=== PATIENT | male | born 1950 | race Caucasian/White ===

== ENCOUNTER 2019-01-23 04:20 | Inpatient (IN) | payer MEDICARE ==
[2019-01-22 11:59] LABS: MICROSCOPIC NOT IND
[2019-01-22 14:48] LABS: BASOPHILS # (AUTO) 0.09 x10^3/uL (0-0.1); BASOPHILS % (AUTO) 1 % (0-1); EOSINOPHILS # (AUTO) 0.76 x10^3/uL (0-0.4); EOSINOPHILS % (AUTO) 8 % (1-7); LYMPHOCYTES # (AUTO) 1.98 x10^3/uL (1-3.4); LYMPHOCYTES % (AUTO) 22 % (22-44); MD NO; MEAN CORPUSCULAR HEMOGLOBIN 28.6 pg (27.5-34.5); MEAN CORPUSCULAR HGB CONC 32.3 g/dL (33.2-36.2); MEAN CORPUSCULAR VOLUME 88.5 fL (81-97); MEAN PLATELET VOLUME 7.6 fL (7.4-10.4); MONOCYTES # (AUTO) 0.64 x10^3/uL (0.2-0.8); MONOCYTES % (AUTO) 7 % (2-9); NEUTROPHILS # (AUTO) 5.68 x10^3/uL (1.8-6.8); NEUTROPHILS % (AUTO) 62 % (42-75); PLATELET COUNT 186 x10^3/uL (130-400); RED BLOOD COUNT 4.34 x10^6/uL (4.38-5.82); RED CELL DISTRIBUTION WIDTH 14.5 % (9.4-14.8)
[2019-01-22 14:58] LABS: INTERNATIONAL NORMALIZED RATIO 1.02 (0.93-1.1); PROTHROMBIN TIME 10.7 Seconds (9.6-11.5)
[2019-01-22 15:00] LABS: ALBUMIN 3.9 g/dL (3.4-5.0); ANION GAP 6 mmol/L (5-15); CHLORIDE 107 mmol/L (98-107)
[2019-01-22 15:04] LABS: ALANINE AMINOTRANSFERASE 27 U/L (12-78); ALKALINE PHOSPHATASE 76 U/L (45-117); BILIRUBIN,TOTAL 0.4 mg/dL (0.2-1.0); TOTAL PROTEIN 7.2 g/dL (6.4-8.2)
[~2019-01-23] VITALS: Ht 188 cm; Wt 86.6 kg
[~2019-01-23 04:20] MED LIST: ALBU18HF INH; ALOG25TA2 PO; ASPI-496 PO; ATEN25TA PO; ATOR40TA78 PO; FINA5TAB4 PO; FLUT9.9S INH; INSU100V8 SQ; MAGN400T7 PO; METF500T17 PO; TAMS-11 PO; TRIA15CR2 TD
[2019-01-23 04:34] VITALS: BP_SYST 118; BP_SYST 124; BP_DIAS 73; BP_DIAS 76
[2019-01-23] MEDS ORDERED: METOPROLOL TARTRATE 25 MG TABLET PO ONE (05:00)
[2019-01-23] MEDS ORDERED: CHLORHEXIDINE 15 ML UDC MM SCH (05:30)
[2019-01-23] MEDS ORDERED: INSULIN LISPRO 100 UNITS/ML, PEN SQ-INSULIN SCH (05:30)
[2019-01-23] MEDS ORDERED: PAPAVERINE 30 MG/ML, 2ML ONE (06:14)
[2019-01-23] MEDS ORDERED: HEPARIN 1,000 UNITS/ML, 10ML ONE (06:14)
[2019-01-23] MEDS ORDERED: MIDAZOLAM 10MG/2 ML ONE (07:12)
[2019-01-23] MEDS ORDERED: FENTANYL PF 250 MCG/5ML ONE ×4 (07:12)
[2019-01-23] MEDS ORDERED: CALCIUM CHLORIDE 10%, 10ML SYR ONE (07:13)
[2019-01-23] MEDS ORDERED: ROCURONIUM 10MG/ML,5ML ONE ×2 (07:13)
[2019-01-23] MEDS ORDERED: AMINOCAPROIC ACID 250 MG/ML, 20ML ONE ×3 (07:13→12:05)
[2019-01-23] MEDS ORDERED: PROPOFOL 10 MG/ML, 20ML ONE (07:13)
[2019-01-23] MEDS ORDERED: PHENYLEPHRINE 10 MG/ML ONE (07:13)
[2019-01-23] MEDS ORDERED: REGULAR INSULIN 62.5 UNITS in SODIUM CHLORIDE 0.9% 249.375 ML IV PRN ×2 (07:30→12:27)
[2019-01-23] MEDS ORDERED: POTASSIUM CHLORIDE 80 MEQ, SODIUM BICARBONATE 8.4% 10 MEQ, MAGNESIUM SULFATE 0.5 GM, LI... IV PRN (07:30)
[2019-01-23] MEDS ORDERED: CEFUROXIME 1.5 GM in SODIUM CHLORIDE 0.9% 50 ML IVPB PRN (07:30)
[2019-01-23] MEDS ORDERED: DEXMEDETOMIDINE 200 MCG in SODIUM CHLORIDE 0.9% 48 ML IV SCH (07:30)
[2019-01-23] MEDS ORDERED: EPINEPHRINE 2 MG in SODIUM CHLORIDE 0.9% 248 ML IV SCH (07:30)
[2019-01-23] MEDS ORDERED: ALBUMIN HUMAN 5% 500 ML IV PRN (07:30)
[2019-01-23] MEDS ORDERED: PHENYLEPHRINE 10 MG in SODIUM CHLORIDE 0.9% 249 ML IV PRN ×2 (07:30→12:27)
[2019-01-23] MEDS ORDERED: MANNITOL PMX 20% 500 ML IVPB PRN (07:30)
[2019-01-23] MEDS ORDERED: VANCOMYCIN 1,300 MG in SODIUM CHLORIDE 0.9% 250 ML IV PRN (07:30)
[2019-01-23] MEDS ORDERED: HEPARIN 1,000 UNITS/ML, 10ML IV ONE (08:40)
[2019-01-23] MEDS ORDERED: PAPAVERINE 30 MG/ML, 2ML IV ONE (08:41)
[2019-01-23] MEDS: DOCUSATE 100 MG CAPSULE PO SCH ×2 (09:00→20:31)
[2019-01-23] MEDS ORDERED: MUPIROCIN OINT 2%, 22GM TP SCH (09:00)
[2019-01-23] MEDS: SODIUM CHLORIDE FLUSH 10ML SYR IVF SCH ×3 (09:00→20:30)
[2019-01-23] MEDS ORDERED: PROTAMINE SULFATE 10 MG/ML, 25ML ONE ×2 (09:44)
[2019-01-23] MEDS ORDERED: THROMBIN 5,000 UNIT VIAL TP ONE ×3 (11:28→11:31)
[2019-01-23] MEDS ORDERED: DESMOPRESSIN 24 MCG in SODIUM CHLORIDE 0.9% 50 ML IVPB ONE (12:00)
[2019-01-23] MEDS ORDERED: VASOPRESSIN 50 UNIT in SODIUM CHLORIDE 0.9% 247.5 ML IV PRN (12:27)
[2019-01-23] MEDS ORDERED: SODIUM CHLORIDE 0.9% 1,000 ML IV PRN (12:27)
[2019-01-23] MEDS ORDERED: DOBUTAMINE 250 MG in SODIUM CHLORIDE 0.9% 230 ML IV PRN (12:27)
[2019-01-23] MEDS ORDERED: NITROGLYCERIN/D5W PMX 250 ML IV PRN (12:27)
[2019-01-23] MEDS ORDERED: DEXMEDETOMIDINE 200 MCG in SODIUM CHLORIDE 0.9% 48 ML IV PRN (12:27)
[2019-01-23] MEDS ORDERED: GLUCAGON 1 MG IM PRN (12:30)
[2019-01-23] MEDS: KSCALE TO 4.5 IV SCH ×2 (12:30→18:30)
[2019-01-23] MEDS ORDERED: EPINEPHRINE 2 MG in SODIUM CHLORIDE 0.9% 248 ML IV PRN (12:30)
[2019-01-23] MEDS ORDERED: BISACODYL 10 MG SUPP PR PRN (12:30)
[2019-01-23] MEDS ORDERED: ACETAMINOPHEN 650 MG SUPP PR PRN (12:30)
[2019-01-23] MEDS ORDERED: INSULIN REGULAR 100 UNITS/ML, 3ML VIAL IVPush PRN (12:30)
[2019-01-23] MEDS ORDERED: ACETAMINOPHEN 325 MG TABLET PO PRN (12:30)
[2019-01-23] MEDS ORDERED: SODIUM BICARB 8.4%, 50ML SYRINGE IV PRN (12:30)
[2019-01-23] MEDS ORDERED: MIDAZOLAM 1 MG/ML, 5ML IVPush PRN (12:30)
[2019-01-23] MEDS ORDERED: morphine SULFATE 10 MG/ML, 1ML IVPush PRN (12:30)
[2019-01-23] MEDS ORDERED: PROCHLORPERAZINE 5 MG/ML, 2ML IVPush PRN (12:30)
[2019-01-23] MEDS ORDERED: ONDANSETRON 2MG/ML, 2ML IVPush PRN (12:30)
[2019-01-23] MEDS ORDERED: DEXTROSE 50%, 50ML SYRINGE IVPush PRN (12:30)
[2019-01-23] MEDS ORDERED: DEXTROSE 4 GM TAB.CHEW PO PRN (12:30)
[2019-01-23] MEDS ORDERED: LACTATED RINGERS 1,000 ML IV PRN (12:30)
[2019-01-23 13:00] VITALS: BP 111/53
[2019-01-23] MEDS ORDERED: LIDOCAINE 2% 100MG/5ML SYRINGE ONE (13:00)
[2019-01-23] MEDS ORDERED: SODIUM BICARBONATE 1 MEQ/ML, 50ML VIAL ONE ×2 (13:00→13:38)
[2019-01-23] MEDS ORDERED: methylPREDNISolone SOD SUCC 125 MG/2 ML ONE (13:00)
[2019-01-23] MEDS ORDERED: HEPARIN 1,000 UNITS/ML, 30ML ONE (13:01)
[2019-01-23] MEDS ORDERED: ALBUMIN HUMAN 25% 50 ML ONE (13:01)
[2019-01-23 13:11] LABS: GLUCOSE BY BLOOD GAS ANALYZER 189 mg/dL (70-110); HEMOGLOBIN BY BLOOD GAS ANALYZ 8.5 g/dL (14.0-18.0); POTASSIUM BY BLOOD GAS ANALYZR 3.8 mmol/L (3.6-5.5)
[2019-01-23 13:14] LABS: FIO2 80 %
[2019-01-23] MEDS: MAGNESIUM SULFATE 1 GM in SODIUM CHLORIDE 0.9% 50 ML IVPB SCH (13:49)
[2019-01-23] MEDS ORDERED: POTASSIUM CHLORIDE PMX 100 ML IV ONE (14:00)
[2019-01-23 14:17] VITALS: BP 114/51
[2019-01-23] MEDS: INSULIN LISPRO 100 UNITS/ML, PEN SQ-INSULIN SCH ×2 (16:00→21:00)
[2019-01-23] MEDS: OXYcodone IR 5MG TABLET PO PRN ×2 (16:17→20:31)
[2019-01-23] MEDS ORDERED: ALBUMIN HUMAN 25% 100 ML ONE (16:25)
[2019-01-23] MEDS ORDERED: ALBUTEROL SULFATE 2.5 MG/3 ML NPPB PRN (16:30)
[2019-01-23] MEDS ORDERED: ALBUMIN HUMAN 25% 50 ML IV ONE (17:00)
[2019-01-23] MEDS ORDERED: ALBUMIN HUMAN 25% 100 ML IV ONE (17:30)
[2019-01-23] MEDS: HYDROcodone/APAP 5/325 TABLET PO PRN (17:33)
[2019-01-23] MEDS: VANCOMYCIN 1,300 MG in SODIUM CHLORIDE 0.9% 250 ML IVPB SCH (18:26)
[2019-01-23] MEDS: CEFUROXIME 1.5 GM in SODIUM CHLORIDE 0.9% 50 ML IVPB SCH (18:26)
[2019-01-23] MEDS: MUPIROCIN OINT 2%, 22GM NAS SCH (20:30)
[2019-01-23] MEDS ORDERED: CHLORHEXIDINE 15 ML UDC ONE (21:17)
[2019-01-23] MEDS ORDERED: INSULIN LISPRO 100 UNITS/ML, PEN SQ-INSULIN PRN (21:30)
[2019-01-23] MEDS: CHLORHEXIDINE 15 ML UDC MM SCH (21:39)
[2019-01-24] MEDS: KSCALE TO 4.5 IV SCH ×2 (01:32→06:39)
[2019-01-24] MEDS: HYDROcodone/APAP 5/325 TABLET PO PRN ×3 (03:57→19:21)
[2019-01-24 06:15] LABS: BASOPHILS # (AUTO) 0.02 x10^3/uL (0-0.1); BASOPHILS % (AUTO) 0 % (0-1); EOSINOPHILS % (AUTO) 0 % (1-7); LYMPHOCYTES # (AUTO) 0.78 x10^3/uL (1-3.4); LYMPHOCYTES % (AUTO) 7 % (22-44); MD NO; MEAN CORPUSCULAR HEMOGLOBIN 28.2 pg (27.5-34.5); MEAN CORPUSCULAR VOLUME 88.3 fL (81-97); MEAN PLATELET VOLUME 8.3 fL (7.4-10.4); MONOCYTES # (AUTO) 0.97 x10^3/uL (0.2-0.8); MONOCYTES % (AUTO) 8 % (2-9); NEUTROPHILS # (AUTO) 9.72 x10^3/uL (1.8-6.8); NEUTROPHILS % (AUTO) 85 % (42-75); PLATELET COUNT 135 x10^3/uL (130-400); RED CELL DISTRIBUTION WIDTH 14.5 % (9.4-14.8)
[2019-01-24 06:23] LABS: ALBUMIN 3.3 g/dL (3.4-5.0); ANION GAP 9 mmol/L (5-15); CHLORIDE 110 mmol/L (98-107); CREATININE 1.16 mg/dL (0.7-1.3)
[2019-01-24 06:25] LABS: INTERNATIONAL NORMALIZED RATIO 1.01 (0.93-1.1); PROTHROMBIN TIME 10.6 Seconds (9.6-11.5)
[2019-01-24] MEDS: CEFUROXIME 1.5 GM in SODIUM CHLORIDE 0.9% 50 ML IVPB SCH (06:47)
[2019-01-24] MEDS: VANCOMYCIN 1,300 MG in SODIUM CHLORIDE 0.9% 250 ML IVPB SCH (07:22)
[2019-01-24] MEDS: OXYcodone IR 5MG TABLET PO PRN ×2 (08:26→14:47)
[2019-01-24] MEDS: INSULIN LISPRO 100 UNITS/ML, PEN SQ-INSULIN SCH ×4 (08:26→19:23)
[2019-01-24] MEDS: DOCUSATE 100 MG CAPSULE PO SCH ×2 (08:26→21:38)
[2019-01-24] MEDS: MUPIROCIN OINT 2%, 22GM NAS SCH ×2 (08:27→21:38)
[2019-01-24] MEDS: SODIUM CHLORIDE FLUSH 10ML SYR IVF SCH ×5 (08:27→21:37)
[2019-01-24] MEDS: ASPIRIN 81 MG TABLET EC PO SCH (08:31)
[2019-01-24] MEDS: METOPROLOL TARTRATE 25 MG TABLET PO/NG SCH ×2 (08:33→21:38)
[2019-01-24] MEDS ORDERED: ALBUTEROL SULFATE 2.5 MG/3 ML HHN SCH (09:00)
[2019-01-24] MEDS ORDERED: MAGNESIUM HYDROXIDE 8%, 30ML UDC PO PRN (09:00)
[2019-01-24] MEDS ORDERED: METOPROLOL TARTRATE 25 MG TABLET PO ONE (09:00)
[2019-01-24] MEDS ORDERED: METOPROLOL TARTRATE 25 MG TABLET PO SCH (09:00)
[2019-01-24] MEDS: FUROSEMIDE 20 MG/2 ML IV SCH (10:49)
[2019-01-24] MEDS: FINASTERIDE 5 MG TABLET PO SCH (10:58)
[2019-01-24] MEDS: TAMSULOSIN 0.4 MG CAP.ER.24H PO SCH ×2 (10:58→21:38)
[2019-01-24] MEDS: POTASSIUM CHLORIDE 10 MEQ TABLET.ER PO SCH (11:07)
[2019-01-24] MEDS: MAGNESIUM SULFATE 1 GM in SODIUM CHLORIDE 0.9% 50 ML IVPB SCH (13:58)
[2019-01-24 19:57] VITALS: BP 120/74
[2019-01-24] MEDS: ATORVASTATIN 40 MG TABLET PO SCH (21:38)
[2019-01-24] MEDS: CHLORHEXIDINE 15 ML UDC MM SCH (22:36)
[2019-01-25] MEDS: INSULIN LISPRO 100 UNITS/ML, PEN SQ-INSULIN SCH ×7 (00:09→20:28)
[2019-01-25] MEDS: HYDROcodone/APAP 5/325 TABLET PO PRN ×4 (00:12→13:57)
[2019-01-25 01:00] VITALS: BP 103/62
[2019-01-25 04:53] LABS: INTERNATIONAL NORMALIZED RATIO 1.02 (0.93-1.1); PROTHROMBIN TIME 10.7 Seconds (9.6-11.5)
[2019-01-25 04:55] LABS: BASOPHILS # (AUTO) 0.07 x10^3/uL (0-0.1); BASOPHILS % (AUTO) 1 % (0-1); EOSINOPHILS # (AUTO) 0.26 x10^3/uL (0-0.4); EOSINOPHILS % (AUTO) 2 % (1-7); LYMPHOCYTES # (AUTO) 1.35 x10^3/uL (1-3.4); LYMPHOCYTES % (AUTO) 10 % (22-44); MD NO; MEAN CORPUSCULAR HEMOGLOBIN 28.8 pg (27.5-34.5); MEAN CORPUSCULAR HGB CONC 32.4 g/dL (33.2-36.2); MEAN CORPUSCULAR VOLUME 88.9 fL (81-97); MEAN PLATELET VOLUME 8.4 fL (7.4-10.4); MONOCYTES # (AUTO) 1.07 x10^3/uL (0.2-0.8); MONOCYTES % (AUTO) 8 % (2-9); NEUTROPHILS # (AUTO) 10.83 x10^3/uL (1.8-6.8); NEUTROPHILS % (AUTO) 80 % (42-75); PLATELET COUNT 134 x10^3/uL (130-400); RED BLOOD COUNT 2.92 x10^6/uL (4.38-5.82); RED CELL DISTRIBUTION WIDTH 13.9 % (9.4-14.8)
[2019-01-25 04:58] LABS: CHLORIDE 106 mmol/L (98-107)
[2019-01-25 05:07] LABS: ANION GAP 6 mmol/L (5-15); CALCIUM 8.4 mg/dL (8.5-10.1); CREATININE 1.02 mg/dL (0.7-1.3)
[2019-01-25 06:58] VITALS: BP 114/64
[2019-01-25] MEDS ORDERED: MAGNESIUM SULFATE PMX 2GM/50ML 50 ML IV ONE (08:00)
[2019-01-25] MEDS: DOCUSATE 100 MG CAPSULE PO SCH ×2 (08:31→20:21)
[2019-01-25] MEDS: CHLORHEXIDINE 15 ML UDC MM SCH ×2 (08:31→20:22)
[2019-01-25] MEDS: MAGNESIUM OXIDE 400 MG TABLET PO SCH ×2 (08:31→20:22)
[2019-01-25] MEDS: TAMSULOSIN 0.4 MG CAP.ER.24H PO SCH ×2 (08:31→20:21)
[2019-01-25] MEDS: ASPIRIN 81 MG TABLET EC PO SCH (08:31)
[2019-01-25] MEDS: POTASSIUM CHLORIDE 10 MEQ TABLET.ER PO SCH (08:31)
[2019-01-25] MEDS: FUROSEMIDE 20 MG/2 ML IV SCH (08:31)
[2019-01-25] MEDS: MUPIROCIN OINT 2%, 22GM NAS SCH ×2 (08:32→20:21)
[2019-01-25] MEDS: SODIUM CHLORIDE FLUSH 10ML SYR IVF SCH ×6 (08:32→20:33)
[2019-01-25] MEDS: metFORMIN 500 MG TABLET PO SCH ×2 (08:44→16:32)
[2019-01-25] MEDS: METOPROLOL TARTRATE 25 MG TABLET PO/NG SCH ×2 (08:44→20:22)
[2019-01-25] MEDS: FINASTERIDE 5 MG TABLET PO SCH (08:45)
[2019-01-25] MEDS ORDERED: ENOXAPARIN 40 MG/0.4 ML SQ SCH (09:00)
[2019-01-25 10:12] VITALS: BP 93/61
[2019-01-25] MEDS: OXYcodone IR 5MG TABLET PO PRN ×3 (10:20→16:36)
[2019-01-25 12:11] VITALS: BP 116/74
[2019-01-25 12:53] VITALS: BP 117/76
[2019-01-25] MEDS: MAGNESIUM SULFATE 1 GM in SODIUM CHLORIDE 0.9% 50 ML IVPB SCH (13:52)
[2019-01-25] MEDS: GUAIFENESIN ER 600 MG TABLET PO SCH ×2 (16:32→20:21)
[2019-01-25 19:12] VITALS: BP 118/73
[2019-01-25] MEDS: ATORVASTATIN 40 MG TABLET PO SCH (20:21)
[2019-01-26 01:09] VITALS: BP 100/66
[2019-01-26] MEDS: HYDROcodone/APAP 5/325 TABLET PO PRN ×2 (03:58→21:03)
[2019-01-26 04:29] LABS: BASOPHILS # (AUTO) 0.12 x10^3/uL (0-0.1); BASOPHILS % (AUTO) 1 % (0-1); EOSINOPHILS # (AUTO) 0.68 x10^3/uL (0-0.4); EOSINOPHILS % (AUTO) 5 % (1-7); LYMPHOCYTES # (AUTO) 1.73 x10^3/uL (1-3.4); LYMPHOCYTES % (AUTO) 13 % (22-44); MD NO; MEAN CORPUSCULAR HEMOGLOBIN 28.5 pg (27.5-34.5); MEAN CORPUSCULAR HGB CONC 32.5 g/dL (33.2-36.2); MEAN CORPUSCULAR VOLUME 87.6 fL (81-97); MONOCYTES # (AUTO) 0.93 x10^3/uL (0.2-0.8); MONOCYTES % (AUTO) 7 % (2-9); NEUTROPHILS # (AUTO) 9.86 x10^3/uL (1.8-6.8); NEUTROPHILS % (AUTO) 74 % (42-75); PLATELET COUNT 141 x10^3/uL (130-400); RED BLOOD COUNT 2.84 x10^6/uL (4.38-5.82); RED CELL DISTRIBUTION WIDTH 13.8 % (9.4-14.8)
[2019-01-26 04:36] LABS: CHLORIDE 105 mmol/L (98-107)
[2019-01-26 04:41] LABS: ANION GAP 4 mmol/L (5-15); CALCIUM 8.1 mg/dL (8.5-10.1); CREATININE 0.97 mg/dL (0.7-1.3)
[2019-01-26] MEDS: INSULIN LISPRO 100 UNITS/ML, PEN SQ-INSULIN SCH ×4 (07:00→20:17)
[2019-01-26 07:30] VITALS: BP 116/72
[2019-01-26] MEDS: OXYcodone IR 5MG TABLET PO PRN ×2 (07:43→09:44)
[2019-01-26] MEDS: MUPIROCIN OINT 2%, 22GM NAS SCH ×2 (07:50→20:13)
[2019-01-26] MEDS: TAMSULOSIN 0.4 MG CAP.ER.24H PO SCH ×2 (07:50→20:13)
[2019-01-26] MEDS: ASPIRIN 81 MG TABLET EC PO SCH (07:50)
[2019-01-26] MEDS: MAGNESIUM OXIDE 400 MG TABLET PO SCH ×2 (07:50→20:13)
[2019-01-26] MEDS: FUROSEMIDE 20 MG/2 ML IV SCH (07:50)
[2019-01-26] MEDS: GUAIFENESIN ER 600 MG TABLET PO SCH ×3 (07:50→20:13)
[2019-01-26] MEDS: DOCUSATE 100 MG CAPSULE PO SCH ×2 (07:50→20:13)
[2019-01-26] MEDS: metFORMIN 500 MG TABLET PO SCH ×2 (07:50→17:30)
[2019-01-26] MEDS: METOPROLOL TARTRATE 25 MG TABLET PO/NG SCH ×2 (07:50→20:14)
[2019-01-26] MEDS: CLOPIDOGREL 75 MG TABLET PO SCH (07:50)
[2019-01-26] MEDS: SODIUM CHLORIDE FLUSH 10ML SYR IVF SCH ×6 (07:51→20:12)
[2019-01-26] MEDS: FINASTERIDE 5 MG TABLET PO SCH (07:51)
[2019-01-26] MEDS: POTASSIUM CHLORIDE 10 MEQ TABLET.ER PO SCH (07:51)
[2019-01-26] MEDS ORDERED: POLYETHYLENE GLYCOL 17 GM PACKET NG ONE (09:00)
[2019-01-26] MEDS ORDERED: CYCLOBENZAPRINE 10 MG TABLET PO PRN (10:00)
[2019-01-26] MEDS: ALOGLIPTIN BENZOATE 25 MG HOMEMEDPO SCH (12:17)
[2019-01-26 14:34] VITALS: BP 116/71
[2019-01-26 18:52] VITALS: BP 109/68
[2019-01-26] MEDS: ATORVASTATIN 40 MG TABLET PO SCH (20:13)
[2019-01-27 00:31] VITALS: BP 100/62
[2019-01-27 03:35] VITALS: BP 106/69
[2019-01-27 04:44] LABS: BASOPHILS # (AUTO) 0.06 x10^3/uL (0-0.1); BASOPHILS % (AUTO) 1 % (0-1); EOSINOPHILS # (AUTO) 1.12 x10^3/uL (0-0.4); EOSINOPHILS % (AUTO) 10 % (1-7); LYMPHOCYTES # (AUTO) 1.43 x10^3/uL (1-3.4); LYMPHOCYTES % (AUTO) 13 % (22-44); MD NO; MEAN CORPUSCULAR HEMOGLOBIN 28.6 pg (27.5-34.5); MEAN CORPUSCULAR HGB CONC 32.4 g/dL (33.2-36.2); MEAN CORPUSCULAR VOLUME 88.4 fL (81-97); MEAN PLATELET VOLUME 7.8 fL (7.4-10.4); MONOCYTES # (AUTO) 0.85 x10^3/uL (0.2-0.8); MONOCYTES % (AUTO) 8 % (2-9); NEUTROPHILS # (AUTO) 7.31 x10^3/uL (1.8-6.8); NEUTROPHILS % (AUTO) 68 % (42-75); PLATELET COUNT 171 x10^3/uL (130-400); RED BLOOD COUNT 2.77 x10^6/uL (4.38-5.82); RED CELL DISTRIBUTION WIDTH 13.5 % (9.4-14.8)
[2019-01-27 04:51] LABS: ANION GAP 4 mmol/L (5-15); CALCIUM 8.4 mg/dL (8.5-10.1); CHLORIDE 103 mmol/L (98-107); CREATININE 1.09 mg/dL (0.7-1.3)
[2019-01-27 07:26] VITALS: BP 112/72
[2019-01-27] MEDS: METOPROLOL TARTRATE 25 MG TABLET PO/NG SCH (08:07)
[2019-01-27] MEDS: FUROSEMIDE 20 MG/2 ML IV SCH (08:09)
[2019-01-27] MEDS ORDERED: DILTIAZEM 5 MG/ML, 5ML ONE (08:10)
[2019-01-27] MEDS: INSULIN LISPRO 100 UNITS/ML, PEN SQ-INSULIN SCH ×4 (08:26→20:50)
[2019-01-27] MEDS ORDERED: DILTIAZEM 125 MG in SODIUM CHLORIDE 0.9% 100 ML IV SCH (08:30)
[2019-01-27] MEDS ORDERED: DILTIAZEM 5 MG/ML, 5ML IVPush ONE (08:30)
[2019-01-27] MEDS: GUAIFENESIN ER 600 MG TABLET PO SCH ×3 (08:33→20:53)
[2019-01-27] MEDS: metFORMIN 500 MG TABLET PO SCH ×2 (08:33→16:47)
[2019-01-27] MEDS: BISACODYL 5 MG EC TABLET PO PRN (08:33)
[2019-01-27] MEDS: MUPIROCIN OINT 2%, 22GM NAS SCH ×2 (08:33→20:59)
[2019-01-27] MEDS: POTASSIUM CHLORIDE 10 MEQ TABLET.ER PO SCH (08:33)
[2019-01-27] MEDS: CLOPIDOGREL 75 MG TABLET PO SCH (08:33)
[2019-01-27] MEDS: MAGNESIUM OXIDE 400 MG TABLET PO SCH ×2 (08:33→20:54)
[2019-01-27] MEDS: TAMSULOSIN 0.4 MG CAP.ER.24H PO SCH ×2 (08:33→20:53)
[2019-01-27] MEDS: ASPIRIN 81 MG TABLET EC PO SCH (08:33)
[2019-01-27] MEDS: SODIUM CHLORIDE FLUSH 10ML SYR IVF SCH ×6 (08:48→20:52)
[2019-01-27] MEDS: ALOGLIPTIN BENZOATE 25 MG HOMEMEDPO SCH (08:48)
[2019-01-27] MEDS: FINASTERIDE 5 MG TABLET PO SCH (08:48)
[2019-01-27] MEDS ORDERED: AMIODARONE 150MG/100ML PREMIX IV ONE (09:30)
[2019-01-27] MEDS: METOPROLOL TARTRATE 25 MG TABLET PO SCH ×3 (09:30→20:58)
[2019-01-27] MEDS ORDERED: AMIODARONE 150 MG in DEXTROSE 5% 100 ML IV ONE (10:00)
[2019-01-27] MEDS ORDERED: FILTER 0.22 MICRON FOR AMIODARONE IV PRN (10:00)
[2019-01-27] MEDS ORDERED: POTASSIUM CHLORIDE 20 MEQ TAB.ER.PRT PO ONE (10:00)
[2019-01-27] MEDS: AMIODARONE 200 MG TABLET PO SCH ×2 (10:35→20:53)
[2019-01-27 12:54] VITALS: BP 96/60
[2019-01-27 14:26] VITALS: BP 107/68
[2019-01-27 20:20] VITALS: BP 107/66
[2019-01-27] MEDS: DOCUSATE 100 MG CAPSULE PO SCH (20:53)
[2019-01-27] MEDS: ATORVASTATIN 40 MG TABLET PO SCH (20:53)
[2019-01-28 01:08] VITALS: BP 100/63
[2019-01-28 05:23] VITALS: BP 108/69
[2019-01-28] MEDS: METOPROLOL TARTRATE 25 MG TABLET PO SCH ×2 (05:24→21:05)
[2019-01-28 05:26] LABS: BASOPHILS # (AUTO) 0.06 x10^3/uL (0-0.1); BASOPHILS % (AUTO) 1 % (0-1); EOSINOPHILS # (AUTO) 0.83 x10^3/uL (0-0.4); EOSINOPHILS % (AUTO) 9 % (1-7); LYMPHOCYTES # (AUTO) 1.54 x10^3/uL (1-3.4); LYMPHOCYTES % (AUTO) 16 % (22-44); MD NO; MEAN CORPUSCULAR HEMOGLOBIN 28.5 pg (27.5-34.5); MEAN CORPUSCULAR HGB CONC 32.5 g/dL (33.2-36.2); MEAN CORPUSCULAR VOLUME 87.6 fL (81-97); MEAN PLATELET VOLUME 7.4 fL (7.4-10.4); MONOCYTES # (AUTO) 0.75 x10^3/uL (0.2-0.8); MONOCYTES % (AUTO) 8 % (2-9); NEUTROPHILS # (AUTO) 6.27 x10^3/uL (1.8-6.8); NEUTROPHILS % (AUTO) 66 % (42-75); PLATELET COUNT 207 x10^3/uL (130-400); RED BLOOD COUNT 2.83 x10^6/uL (4.38-5.82); RED CELL DISTRIBUTION WIDTH 13.9 % (9.4-14.8)
[2019-01-28 05:29] LABS: ALANINE AMINOTRANSFERASE 34 U/L (12-78); ALBUMIN 2.6 g/dL (3.4-5.0); ANION GAP 7 mmol/L (5-15); CALCIUM 8.5 mg/dL (8.5-10.1); CHLORIDE 107 mmol/L (98-107)
[2019-01-28 05:31] LABS: ALKALINE PHOSPHATASE 65 U/L (45-117); BILIRUBIN,TOTAL 0.4 mg/dL (0.2-1.0); TOTAL PROTEIN 5.9 g/dL (6.4-8.2)
[2019-01-28 06:36] VITALS: BP 106/63
[2019-01-28] MEDS: INSULIN LISPRO 100 UNITS/ML, PEN SQ-INSULIN SCH ×4 (07:00→21:00)
[2019-01-28] MEDS: ALOGLIPTIN BENZOATE 25 MG HOMEMEDPO SCH (08:19)
[2019-01-28] MEDS: ASPIRIN 81 MG TABLET EC PO SCH (08:21)
[2019-01-28] MEDS: AMIODARONE 200 MG TABLET PO SCH ×2 (08:23→21:04)
[2019-01-28] MEDS: BISACODYL 5 MG EC TABLET PO PRN (08:24)
[2019-01-28] MEDS: DOCUSATE 100 MG CAPSULE PO SCH (08:24)
[2019-01-28] MEDS: GUAIFENESIN ER 600 MG TABLET PO SCH ×3 (08:24→21:04)
[2019-01-28] MEDS: MUPIROCIN OINT 2%, 22GM NAS SCH (08:27)
[2019-01-28] MEDS: FUROSEMIDE 20 MG/2 ML IV SCH (08:28)
[2019-01-28] MEDS: CLOPIDOGREL 75 MG TABLET PO SCH (08:28)
[2019-01-28] MEDS: SODIUM CHLORIDE FLUSH 10ML SYR IVF SCH ×6 (08:33→21:03)
[2019-01-28] MEDS: POTASSIUM CHLORIDE 10 MEQ TABLET.ER PO SCH (08:36)
[2019-01-28] MEDS: FINASTERIDE 5 MG TABLET PO SCH (08:38)
[2019-01-28] MEDS: metFORMIN 500 MG TABLET PO SCH ×2 (08:38→16:15)
[2019-01-28] MEDS: TAMSULOSIN 0.4 MG CAP.ER.24H PO SCH ×2 (08:39→21:04)
[2019-01-28] MEDS: MAGNESIUM OXIDE 400 MG TABLET PO SCH ×2 (08:39→21:04)
[2019-01-28] MEDS ORDERED: FUROSEMIDE 20 MG TABLET PO SCH (09:00)
[2019-01-28 13:02] VITALS: BP 104/68
[2019-01-28 19:35] VITALS: BP 119/73
[2019-01-28] MEDS: ATORVASTATIN 40 MG TABLET PO SCH (21:04)
[2019-01-29 01:11] VITALS: BP 110/71
[2019-01-29 06:01] LABS: BASOPHILS # (AUTO) 0.06 x10^3/uL (0-0.1); BASOPHILS % (AUTO) 1 % (0-1); EOSINOPHILS # (AUTO) 0.86 x10^3/uL (0-0.4); EOSINOPHILS % (AUTO) 9 % (1-7); LYMPHOCYTES # (AUTO) 1.55 x10^3/uL (1-3.4); LYMPHOCYTES % (AUTO) 16 % (22-44); MD NO; MEAN CORPUSCULAR HEMOGLOBIN 28.3 pg (27.5-34.5); MEAN CORPUSCULAR HGB CONC 32.4 g/dL (33.2-36.2); MEAN CORPUSCULAR VOLUME 87.3 fL (81-97); MEAN PLATELET VOLUME 7.1 fL (7.4-10.4); MONOCYTES # (AUTO) 0.87 x10^3/uL (0.2-0.8); MONOCYTES % (AUTO) 9 % (2-9); NEUTROPHILS # (AUTO) 6.69 x10^3/uL (1.8-6.8); NEUTROPHILS % (AUTO) 67 % (42-75); PLATELET COUNT 235 x10^3/uL (130-400); RED BLOOD COUNT 2.93 x10^6/uL (4.38-5.82); RED CELL DISTRIBUTION WIDTH 13.5 % (9.4-14.8)
[2019-01-29 06:04] LABS: ANION GAP 5 mmol/L (5-15); CALCIUM 8.6 mg/dL (8.5-10.1); CHLORIDE 107 mmol/L (98-107)
[2019-01-29 06:05] LABS: CREATININE 1.33 mg/dL (0.7-1.3)
[2019-01-29] MEDS: INSULIN LISPRO 100 UNITS/ML, PEN SQ-INSULIN SCH ×4 (07:00→20:58)
[2019-01-29 08:19] VITALS: BP 116/69
[2019-01-29] MEDS: ALOGLIPTIN BENZOATE 25 MG HOMEMEDPO SCH (08:25)
[2019-01-29] MEDS: SODIUM CHLORIDE FLUSH 10ML SYR IVF SCH ×6 (08:26→20:56)
[2019-01-29] MEDS ORDERED: SODIUM CHLORIDE 0.9%, 500ML IVBOLUS ONE (08:30)
[2019-01-29] MEDS ORDERED: FUROSEMIDE 20 MG TABLET PO SCH (09:00)
[2019-01-29] MEDS: AMIODARONE 200 MG TABLET PO SCH ×2 (10:04→20:57)
[2019-01-29] MEDS: TAMSULOSIN 0.4 MG CAP.ER.24H PO SCH ×2 (10:04→20:58)
[2019-01-29] MEDS: CLOPIDOGREL 75 MG TABLET PO SCH (10:04)
[2019-01-29] MEDS: ASPIRIN 81 MG TABLET EC PO SCH (10:04)
[2019-01-29] MEDS: MAGNESIUM OXIDE 400 MG TABLET PO SCH ×2 (10:04→20:58)
[2019-01-29] MEDS: metFORMIN 500 MG TABLET PO SCH ×2 (10:05→17:06)
[2019-01-29] MEDS: GUAIFENESIN ER 600 MG TABLET PO SCH ×3 (10:05→20:57)
[2019-01-29] MEDS: DOCUSATE 100 MG CAPSULE PO SCH (10:07)
[2019-01-29] MEDS: METOPROLOL TARTRATE 25 MG TABLET PO SCH ×2 (11:10→20:57)
[2019-01-29] MEDS: FINASTERIDE 5 MG TABLET PO SCH (11:10)
[2019-01-29 14:14] VITALS: BP 122/75
[2019-01-29 17:28] VITALS: BP 117/57
[2019-01-29] MEDS: FLUTICASONE NASAL SPRAY 16GM NAS SCH ×2 (17:30→20:56)
[2019-01-29 19:27] VITALS: BP 117/57
[2019-01-29] MEDS: ATORVASTATIN 40 MG TABLET PO SCH (20:57)
[2019-01-30 02:09] VITALS: BP 107/66
[2019-01-30] MEDS: SODIUM CHLORIDE FLUSH 10ML SYR IVF SCH ×3 (07:08→08:36)
[2019-01-30] MEDS: ALOGLIPTIN BENZOATE 25 MG HOMEMEDPO SCH (07:08)
[2019-01-30 07:30] VITALS: BP 116/68
[2019-01-30 08:15] LABS: ANION GAP 8 mmol/L (5-15); CALCIUM 8.9 mg/dL (8.5-10.1); CHLORIDE 108 mmol/L (98-107)
[2019-01-30 08:19] LABS: BASOPHILS # (AUTO) 0.03 x10^3/uL (0-0.1); BASOPHILS % (AUTO) 0 % (0-1); EOSINOPHILS # (AUTO) 0.95 x10^3/uL (0-0.4); EOSINOPHILS % (AUTO) 8 % (1-7); LYMPHOCYTES # (AUTO) 1.31 x10^3/uL (1-3.4); LYMPHOCYTES % (AUTO) 11 % (22-44); MD NO; MEAN CORPUSCULAR HEMOGLOBIN 27.3 pg (27.5-34.5); MEAN CORPUSCULAR HGB CONC 31.7 g/dL (33.2-36.2); MEAN CORPUSCULAR VOLUME 86.2 fL (81-97); MEAN PLATELET VOLUME 6.4 fL (7.4-10.4); MONOCYTES # (AUTO) 0.92 x10^3/uL (0.2-0.8); MONOCYTES % (AUTO) 8 % (2-9); NEUTROPHILS # (AUTO) 8.98 x10^3/uL (1.8-6.8); NEUTROPHILS % (AUTO) 74 % (42-75); PLATELET COUNT 298 x10^3/uL (130-400); RED BLOOD COUNT 3.26 x10^6/uL (4.38-5.82); RED CELL DISTRIBUTION WIDTH 13.8 % (9.4-14.8)
[2019-01-30] MEDS: INSULIN LISPRO 100 UNITS/ML, PEN SQ-INSULIN SCH ×2 (08:34→11:45)
[2019-01-30] MEDS: CLOPIDOGREL 75 MG TABLET PO SCH (08:35)
[2019-01-30] MEDS: AMIODARONE 200 MG TABLET PO SCH (08:35)
[2019-01-30] MEDS: TAMSULOSIN 0.4 MG CAP.ER.24H PO SCH (08:35)
[2019-01-30] MEDS: METOPROLOL TARTRATE 25 MG TABLET PO SCH (08:35)
[2019-01-30] MEDS: GUAIFENESIN ER 600 MG TABLET PO SCH (08:35)
[2019-01-30] MEDS: FINASTERIDE 5 MG TABLET PO SCH (08:35)
[2019-01-30] MEDS: MAGNESIUM OXIDE 400 MG TABLET PO SCH (08:35)
[2019-01-30] MEDS: ASPIRIN 81 MG TABLET EC PO SCH (08:36)
[2019-01-30] MEDS: FLUTICASONE NASAL SPRAY 16GM NAS SCH (08:36)
[2019-01-30] MEDS: DOCUSATE 100 MG CAPSULE PO SCH (08:36)
[2019-01-30] MEDS: metFORMIN 500 MG TABLET PO SCH (08:36)
[2019-01-30] MEDS ORDERED: METO25TA35 PO (10:12)
[2019-01-30] MEDS ORDERED: CLOP75TA PO (10:12)
[2019-01-30] MEDS ORDERED: HYDR-3237 PO (10:12)
[2019-01-30] MEDS ORDERED: AMIO200T42 PO (10:12)
[2019-01-30 10:19] LABS: MICROSCOPIC AUTO
[2019-01-30 10:20] LABS: CULTURE INDICATED? YES
== END 2019-01-30 13:55 | disposition home health service (06) | DRG 235 ==
LOC: 5SO 04:20 → CSU 10:04 → 5SO 01-24 13:32 → DCLOUNGE 01-30 13:26
PROVIDERS: ADMIT Thoracic Surgery (Cardiothoracic Vascular Surgery); ATTEND Thoracic Surgery (Cardiothoracic Vascular Surgery)
PROC: 02100Z9 Bypass Coronary Artery, One Artery from Left Internal Mammary, Open Approach (ICD-10-PCS; 2019-01-23)
PROC: 06BP4ZZ Excision of Right Saphenous Vein, Percutaneous Endoscopic Approach (ICD-10-PCS; 2019-01-23)
PROC: 5A1221Z Performance of Cardiac Output, Continuous (ICD-10-PCS; 2019-01-23)
PROC: 30233M1 Transfusion of Nonautologous Plasma Cryoprecipitate into Peripheral Vein, Percutaneous Approach (ICD-10-PCS; 2019-01-23)
PROC: 30233R1 Transfusion of Nonautologous Platelets into Peripheral Vein, Percutaneous Approach (ICD-10-PCS; 2019-01-23)
PROC: 021209W Bypass Coronary Artery, Three Arteries from Aorta with Autologous Venous Tissue, Open Approach (ICD-10-PCS; principal; 2019-01-23 07:30)
PROC: 0W9930Z Drainage of Right Pleural Cavity with Drainage Device, Percutaneous Approach (ICD-10-PCS; 2019-01-27)
DX: I25.110 Atherosclerotic heart disease of native coronary artery with unstable angina pectoris (principal); I50.33 Acute on chronic diastolic (congestive) heart failure; J98.11 Atelectasis; I48.92 Unspecified atrial flutter; D62 Acute posthemorrhagic anemia; S26.91XA Contusion of heart, unspecified with or without hemopericardium, initial encounter; D63.8 Anemia in other chronic diseases classified elsewhere; R79.1 Abnormal coagulation profile; E11.9 Type 2 diabetes mellitus without complications; E66.3 Overweight; E78.5 Hyperlipidemia, unspecified; E83.42 Hypomagnesemia; G89.18 Other acute postprocedural pain; I11.0 Hypertensive heart disease with heart failure; I48.0 Paroxysmal atrial fibrillation; N40.1 Benign prostatic hyperplasia with lower urinary tract symptoms; N49.2 Inflammatory disorders of scrotum; R33.8 Other retention of urine; Z79.02 Long term (current) use of antithrombotics/antiplatelets; Z79.4 Long term (current) use of insulin; Z79.82 Long term (current) use of aspirin; Z82.49 Family history of ischemic heart disease and other diseases of the circulatory system; Z87.442 Personal history of urinary calculi; Z87.440 Personal history of urinary (tract) infections; Z87.891 Personal history of nicotine dependence; Z68.26 Body mass index [BMI] 26.0-26.9, adult; Z91.012 Allergy to eggs
CPT/HCPCS: 32555; 36415; 36600; 71045; 71046; 80048; 80053; 81001; 81003; 82040; 82330; 82800; 82803; 82810; 82947; 82962; 83036; 83735; 84100; 84132; 84295; 85014; 85018; 85025; 85049; 85347; 85610; 85730; 86850; 86900; 86923; 87081; 87086; 93005; 93306; 93312; 93321; 93325; 93970; 94002; G0378; J0697; J1644; J1815; J2250; J2704; J2720; J3010; J3370; J3475; J3480; P9045; P9047; C1751; C1760; J0171; J0282; J1940; J2370; J2440; J2930; J7040; J7050; P9012; P9035

== ENCOUNTER → 2019-02-04 | Outpatient (CLI) | payer MEDICARE ==
[~2019-02-04] MED LIST changes: +AMIO200T42 PO; +CLOP75TA PO; +HYDR-3237 PO; +METO25TA35 PO
[2019-02-04 10:45] LABS: MEAN CORPUSCULAR HEMOGLOBIN 27.3 pg (27.5-34.5); MEAN CORPUSCULAR VOLUME 85.3 fL (81-97); MEAN PLATELET VOLUME 6.7 fL (7.4-10.4); PLATELET COUNT 455 x10^3/uL (130-400); RED BLOOD COUNT 3.74 x10^6/uL (4.38-5.82); RED CELL DISTRIBUTION WIDTH 14.3 % (9.4-14.8)
[2019-02-04 10:50] LABS: ANION GAP 8 mmol/L (5-15); CALCIUM 9.2 mg/dL (8.5-10.1); CHLORIDE 106 mmol/L (98-107); CREATININE 1.68 mg/dL (0.7-1.3)
[2019-02-04 11:06] LABS: BASOPHILS # (AUTO) 0.05 x10^3/uL (0-0.1); BASOPHILS % (AUTO) 0 % (0-1); EOSINOPHILS # (AUTO) 0.86 x10^3/uL (0-0.4); EOSINOPHILS % (AUTO) 5 % (1-7); LYMPHOCYTES # (AUTO) 2.18 x10^3/uL (1-3.4); LYMPHOCYTES % (AUTO) 13 % (22-44); MD SCAN; MONOCYTES # (AUTO) 0.75 x10^3/uL (0.2-0.8); MONOCYTES % (AUTO) 5 % (2-9); NEUTROPHILS # (AUTO) 12.76 x10^3/uL (1.8-6.8); NEUTROPHILS % (AUTO) 77 % (42-75)
== END | disposition home or self-care (01) ==
LOC: RAD 10:07
PROVIDERS: ATTEND Nurse Practitioner Family
DX: J98.11 Atelectasis (principal); R06.02 Shortness of breath
CPT/HCPCS: 36415; 71046; 80048; 85025